=== PATIENT | male | born 1975 | race Caucasian/White ===

== ENCOUNTER 2020-03-22 14:52 | Outpatient (REF) | payer OTHER, SELFPAY | END 2020-03-22 14:53 | disposition home or self-care (01) | LOC: HO.LAB 14:52 | PROVIDERS: Visit Provider Internal Medicine | DX: Z20.828 Contact with and (suspected) exposure to other viral communicable diseases (principal) | CPT/HCPCS: C9803; U0003 ==

== ENCOUNTER 2020-09-26 12:54 | Outpatient (REF) | payer OTHER, SELFPAY ==
[2020-09-26 13:30] LABS: MANUAL DIFF FLAG NO
[2020-09-26 13:37] LABS: Basophils Percent Auto 0.4 % (0-2); Eosinophils Absolute Auto 0.2 X10*3/uL (0.0-0.4); Eosinophils Percent Auto 2.1 % (0-4); Hematocrit 44.2 % (42-52); Hemoglobin 14.1 g/dl (14.0-18.0); Imm Gran Abs Auto 0.04 X10*3/uL (0.00-0.03); Imm Gran Pct Auto 0.4 % (0.0-0.4); Lymphocytes Absolute Auto 3.1 X10*3/uL (1.2-4.9); Lymphocytes Percent Auto 30.2 % (20-40); Mean Corpuscular HGB Conc 31.9 g/dl (31.0-36.0); Mean Corpuscular Hemoglobin 26.5 pg (27.0-33.0); Mean Corpuscular Volume 82.9 fL (80-98); Mean Platelet Volume 10.1 fL (9.4-12.4); Monocytes Absolute Auto 0.9 X10*3/uL (0.1-1.2); Monocytes Percent Auto 8.5 % (2-11); Neutrophils Absolute Auto 5.9 X10*3/uL (2.0-8.3); Neutrophils Percent Auto 58.4 % (45-73); Platelet Count 238 X10*3/uL (160-400); Red Blood Count 5.33 X10*6/uL (4.60-5.80); Red Cell Distribution Width 14.9 % (11.0-16.0); White Blood Count 10.2 X10*3/uL (4.8-10.8)
[2020-09-26 13:59] LABS: Alanine Aminotransferase 61 U/L (0-40); Albumin Level 4.3 g/dL (3.5-5.0); Alkaline Phosphatase 71 U/L (39-117); Anion Gap 12 (12-20); Aspartate Amino Transferase 26 U/L (5-37); Bilirubin Total 0.7 mg/dL (0.0-1.0); Blood Urea Nitrogen 10 mg/dL (9-16); C Reactive Protein 0.32 mg/dL (< or = 0.50); Calcium 9.5 mg/dL (8.4-10.2); Carbon Dioxide 29 mmol/L (22-29); Chloride 103 mmol/L (96-108); Cholesterol 161 mg/dL; Estimated Glomerular Filt Rate > 60; Glucose Random 98 mg/dL (60-115); HDL Cholesterol 30 mg/dL; LDL Cholesterol Calculated 69 mg/dl; Potassium 4.8 mmol/L (3.3-5.1); Sodium 139 mmol/L (135-145); Total Protein 6.7 g/dL (6.5-8.0); Triglycerides 312 mg/dL
== END 2020-09-26 12:55 | disposition home or self-care (01) ==
LOC: HO.LAB 12:54
PROVIDERS: PCP Internal Medicine; Visit Provider Internal Medicine
DX: Z00.00 Encounter for general adult medical examination without abnormal findings (principal); Z86.16 Personal history of COVID-19
CPT/HCPCS: 36415; 80053; 80061; 85025; 86140

== ENCOUNTER 2020-12-20 15:12 | Outpatient (REF) | payer OTHER, SELFPAY ==
[2020-12-20 16:11] LABS: Influenza A PCR NEGATIVE (Negative); Influenza B PCR NEGATIVE (Negative); Resp Syncy Virus RNA Qual PCR NEGATIVE (Negative); SARS COV2 PCR INHOUSE NEGATIVE (Negative)
== END 2020-12-20 15:13 | disposition home or self-care (01) ==
LOC: HO.LNP 15:12
PROVIDERS: Visit Provider Internal Medicine
DX: R06.02 Shortness of breath (principal); Z20.822 Contact with and (suspected) exposure to COVID-19; Z86.16 Personal history of COVID-19
CPT/HCPCS: 0241U

== ENCOUNTER 2021-07-18 10:13 | Outpatient (REF) | payer OTHER, SELFPAY ==
[2021-07-18 13:17] LABS: MANUAL DIFF FLAG NO
[2021-07-18 13:22] LABS: Basophils Absolute Auto 0.1 X10*3/uL (0.0-0.2); Basophils Percent Auto 0.6 % (0-2); Eosinophils Absolute Auto 0.2 X10*3/uL (0.0-0.4); Eosinophils Percent Auto 2.3 % (0-4); Hematocrit 45.8 % (42.0-52.0); Hemoglobin 14.5 g/dl (14.0-18.0); Imm Gran Abs Auto 0.02 X10*3/uL (0.00-0.03); Imm Gran Pct Auto 0.2 % (0.0-0.4); Lymphocytes Percent Auto 33.6 % (20-40); Mean Corpuscular HGB Conc 31.7 g/dl (31.0-36.0); Mean Corpuscular Hemoglobin 26.7 pg (27.0-33.0); Mean Corpuscular Volume 84.2 fL (80.0-98.0); Mean Platelet Volume 11.4 fL (9.4-12.4); Monocytes Absolute Auto 0.6 X10*3/uL (0.1-1.2); Neutrophils Absolute Auto 5.1 x10*3/uL (2.0-8.3); Neutrophils Percent Auto 56.3 % (45-73); Platelet Count 222 X10*3/uL (160-400); Red Blood Count 5.44 X10*6/uL (4.60-5.80); Red Cell Distribution Width 14.9 % (11.0-16.0); White Blood Count 9.1 X10*3/uL (4.8-10.8)
[2021-07-18 13:49] LABS: Alanine Aminotransferase 31 U/L (0-40); Albumin Level 4.2 g/dL (3.5-5.0); Alkaline Phosphatase 65 U/L (39-117); Anion Gap 15 (12-20); Aspartate Amino Transferase 15 U/L (5-37); Bilirubin Total 0.4 mg/dL (0.0-1.0); Blood Urea Nitrogen 10 mg/dL (9-16); Calcium 9.1 mg/dL (8.4-10.2); Carbon Dioxide 23 mmol/L (22-29); Chloride 106 mmol/L (96-108); Estimated Glomerular Filt Rate > 60; Glucose Random 92 mg/dL (60-115); Lipase 30 U/L (8-78); Potassium 4.7 mmol/L (3.3-5.1); Sodium 139 mmol/L (135-145)
== END 2021-07-18 10:14 | disposition home or self-care (01) ==
LOC: HO.10HDL 10:13
PROVIDERS: Visit Provider Internal Medicine
DX: R10.9 Unspecified abdominal pain (principal)
CPT/HCPCS: 36415; 80053; 83690; 85025

== ENCOUNTER 2021-07-20 13:37 | Outpatient (REF) | payer OTHER, SELFPAY ==
--- NOTE | ~2021-07-20 | US_ITS ---
EXAMINATION: US ABDOMEN COMPLETE CLINICAL INFORMATION: Abdominal pain. COMPARISON: None TECHNIQUE: Real-time imaging of the abdominal viscera. FINDINGS: PANCREAS: Normal. ABDOMINAL AORTA: The proximal, mid, and distal segments are normal in caliber. INFERIOR VENA CAVA: IVC is not well seen. LIVER: The liver is normal in size. The liver contour is normal. There is increased liver echogenicity. No focal hepatic lesion. There is no intrahepatic biliary duct dilatation seen. GALLBLADDER: Normal. The gallbladder is physiologically distended without evidence of stones, sludge, polyps, wall thickening or pericholecystic fluid. COMMON BILE DUCT: Normal in caliber measuring 0.23 cm in diameter. RIGHT KIDNEY: Normal. No hydronephrosis. No renal calculi or focal parenchymal lesions. The kidney measures 10.5 cm in maximum dimension. LEFT KIDNEY: Normal. No hydronephrosis. No renal calculi or focal parenchymal lesions. The kidney measures 12.2 cm in maximum dimension. SPLEEN: Normal. The spleen measures 10.2 cm in maximum dimension. FREE FLUID: None. US/US abdomen complete IMPRESSION: Mild hepatic steatosis without focal lesion. The rest of the abdominal ultrasound is unremarkable.
== END 2021-07-20 13:38 | disposition home or self-care (01) ==
LOC: HO.US 13:37
PROVIDERS: PCP Internal Medicine; Visit Provider Internal Medicine
DX: R10.84 Generalized abdominal pain (principal); K21.9 Gastro-esophageal reflux disease without esophagitis
CPT/HCPCS: 76700

== ENCOUNTER 2022-01-01 11:23 | Outpatient (REF) | payer OTHER, SELFPAY ==
[2022-01-01 13:37] LABS: MANUAL DIFF FLAG NO
[2022-01-01 13:41] LABS: Basophils Absolute Auto 0.1 X10*3/uL (0.0-0.2); Basophils Percent Auto 0.4 % (0-2); Eosinophils Absolute Auto 0.2 X10*3/uL (0.0-0.4); Eosinophils Percent Auto 1.8 % (0-4); Hematocrit 45.2 % (42.0-52.0); Hemoglobin 14.1 g/dl (14.0-18.0); Imm Gran Abs Auto 0.02 X10*3/uL (0.00-0.03); Imm Gran Pct Auto 0.2 % (0.0-0.4); Lymphocytes Absolute Auto 2.9 X10*3/uL (1.2-4.9); Lymphocytes Percent Auto 25.2 % (20-40); Mean Corpuscular HGB Conc 31.2 g/dl (31.0-36.0); Mean Corpuscular Volume 83.4 fL (80.0-98.0); Monocytes Absolute Auto 0.8 X10*3/uL (0.1-1.2); Neutrophils Absolute Auto 7.5 x10*3/uL (2.0-8.3); Neutrophils Percent Auto 65.4 % (45-73); Platelet Count 197 X10*3/uL (160-400); Red Blood Count 5.42 X10*6/uL (4.60-5.80); Red Cell Distribution Width 14.6 % (11.0-16.0); White Blood Count 11.4 X10*3/uL (4.8-10.8)
[2022-01-01 13:50] LABS: Appearance Urine Clear; Color Urine Yellow; Glucose Urine UA Negative (Negative); Leukocyte Esterase Urine Negative (Negative); Nitrite Urine Negative (Negative); PH 6.5 (5.0-9.0); Specific Gravity - Urine 1.015 (1.005-1.025); Urine Blood Trace (Negative); Urine Ketones Negative (Negative); Urine Protein Negative (Neg-Trace)
[2022-01-01 13:51] LABS: Alanine Aminotransferase 33 U/L (0-40); Albumin Level 4.4 g/dL (3.5-5.0); Alkaline Phosphatase 77 U/L (39-117); Anion Gap 13 (12-20); Aspartate Amino Transferase 14 U/L (5-37); Bilirubin Total 0.2 mg/dL (0.0-1.0); Blood Urea Nitrogen 9 mg/dL (9-16); Calcium 9.1 mg/dL (8.4-10.2); Carbon Dioxide 26 mmol/L (22-29); Chloride 104 mmol/L (96-108); Estimated Glomerular Filt Rate > 60; Glucose Fasting 100 mg/dL (60-99); Potassium 4.3 mmol/L (3.3-5.1); Sodium 139 mmol/L (135-145)
[2022-01-01 13:53] LABS: Bacteria Urine None Seen (None Seen); Hyaline Casts Urine 0-2 /LPF (0-2); Squamous Epithelial Cell Urine 0-2 /HPF (0-2); WBC Urine 0-5 /HPF (0-5)
[2022-01-01 16:21] LABS: CT PCR NOT DETECTED (Not Detect.); NG PCR NOT DETECTED (Not Detect.)
== END 2022-01-01 11:24 | disposition home or self-care (01) ==
LOC: HO.10HDL 11:23
PROVIDERS: Visit Provider Internal Medicine
DX: K21.9 Gastro-esophageal reflux disease without esophagitis (principal); J30.1 Allergic rhinitis due to pollen; N50.89 Other specified disorders of the male genital organs; Z11.3 Encounter for screening for infections with a predominantly sexual mode of transmission
CPT/HCPCS: 80053; 81001; 85025; 87086; 87491; 87591

== ENCOUNTER 2022-03-28 15:07 | Outpatient (REF) | payer OTHER, SELFPAY ==
--- NOTE | ~2022-03-28 | US_ITS ---
EXAMINATION: US SCROTUM CLINICAL INFORMATION: Inflammatory disorder of scrotum. COMPARISON: None TECHNIQUE: A sonogram of the scrotum was performed assessing mejia-scale appearance and color Doppler flow. Spectral Doppler analysis of the arterial and venous flow were performed in the testes bilaterally. FINDINGS: RIGHT: Right testicle measures 4.1 x 2.4 x 3.5 cm, volume 18.1 mL. No focal testicular parenchymal lesions are visualized. Spectral Doppler analysis of the arterial and venous flow is normal in the right testis. Right epididymal head is normal in size. No right varicocele is seen. A small right hydrocele is seen. Right epididymal Doppler flow is normal. LEFT: Left testicle measures 4.4 x 2.3 x 3.4 cm, volume 18.1 mL. No focal testicular parenchymal lesions are visualized. Spectral Doppler analysis of the arterial and venous flow is normal in the left testis. Left epididymal head is normal in size. There is anechoic epididymal head cyst. No left hydrocele or varicocele is seen. Left epididymal Doppler flow is normal. US/US scrotum IMPRESSION: Small left epididymal head cysts. Small right hydrocele. Normal ultrasound and flow to both testes. There is normal flow to bilateral epididymides.
== END 2022-03-28 15:08 | disposition home or self-care (01) ==
LOC: HO.US 15:07
PROVIDERS: Visit Provider Internal Medicine
DX: N49.2 Inflammatory disorders of scrotum (principal)
CPT/HCPCS: 76870

== ENCOUNTER 2023-08-08 10:32 | Outpatient (REF) | payer OTHER, SELFPAY ==
[2023-08-08 10:52] LABS: MANUAL DIFF FLAG NO
[2023-08-08 11:03] LABS: Basophils Absolute Auto 0.1 X10*3/uL (0.0-0.2); Basophils Percent Auto 0.7 % (0-2); Eosinophils Absolute Auto 0.2 X10*3/uL (0.0-0.4); Eosinophils Percent Auto 2.9 % (0-4); Hematocrit 44.3 % (42.0-52.0); Hemoglobin 14.2 g/dl (14.0-18.0); Imm Gran Abs Auto 0.02 X10*3/uL (0.00-0.03); Imm Gran Pct Auto 0.2 % (0.0-0.4); Lymphocytes Absolute Auto 3.2 X10*3/uL (1.2-4.9); Lymphocytes Percent Auto 37.8 % (20-40); Mean Corpuscular HGB Conc 32.1 g/dl (31.0-36.0); Mean Corpuscular Hemoglobin 26.8 pg (27.0-33.0); Mean Corpuscular Volume 83.6 fL (80.0-98.0); Mean Platelet Volume 10.7 fL (9.4-12.4); Monocytes Absolute Auto 0.6 X10*3/uL (0.1-1.2); Neutrophils Absolute Auto 4.3 x10*3/uL (2.0-8.3); Neutrophils Percent Auto 51.4 % (45-73); Platelet Count 234 X10*3/uL (160-400); Red Cell Distribution Width 14.9 % (11.0-16.0); White Blood Count 8.4 X10*3/uL (4.8-10.8)
[2023-08-08 12:31] LABS: Alanine Aminotransferase 25 U/L (0-40); Albumin Level 4.3 g/dL (3.5-5.0); Alkaline Phosphatase 57 U/L (39-117); Anion Gap 12 (12-20); Aspartate Amino Transferase 12 U/L (5-37); Bilirubin Total 0.3 mg/dL (0.0-1.0); Blood Urea Nitrogen 10 mg/dL (9-16); C Reactive Protein < 0.10 mg/dL (< or = 0.50); Carbon Dioxide 27 mmol/L (22-29); Chloride 107 mmol/L (96-108); Cholesterol 152 mg/dL (<200); Estimated Glomerular Filt Rate > 60; Glucose Random 89 mg/dL (60-115); Potassium 4.1 mmol/L (3.3-5.1); Sodium 142 mmol/L (135-145); Total Protein 6.9 g/dL (6.5-8.0)
== END 2023-08-08 10:33 | disposition home or self-care (01) ==
LOC: HO.10HDL 10:32
PROVIDERS: Visit Provider Internal Medicine
DX: K21.9 Gastro-esophageal reflux disease without esophagitis (principal); J30.1 Allergic rhinitis due to pollen; R63.4 Abnormal weight loss
CPT/HCPCS: 36415; 80053; 82465; 85025; 86140

== ENCOUNTER 2023-11-13 13:25 | Outpatient (REF) | payer OTHER, SELFPAY | END 2023-11-13 13:26 | disposition home or self-care (01) | LOC: HO.LNP 13:25 | PROVIDERS: Visit Provider Internal Medicine | DX: L02.511 Cutaneous abscess of right hand (principal) | CPT/HCPCS: 87070; 87205 ==

== ENCOUNTER 2025-04-11 12:56 | Outpatient (AMB) | payer OTHER, SELFPAY ==
--- NOTE | 2025-04-11 13:02 | MHC.PC.OV ---
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 Accompanied by: Self / Same As Patient Allergies No Known Allergies Allergy (Verified 04/11/25 13:12) Medication List - Last Reconciled 04/11/25 by CORBY Jang fluticasone propionate 50 mcg/actuation 1 spray intranasal DAILY omeprazole 20 mg PO DAILY Tobacco use date assessed: 04/11/25 Dental Screening Dental Screen Date: 04/11/25 Did you have a dental visit in the last 12 months?: Yes Did you have a dental problem in the last 6 months where you did not have access to dental care?: No Was dental information given to patient?: 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 Claros at [address] [place] [address], has retired Last visit:over a year ago Last PE: same Specialist: no OBGYN:n/a Past medical history:GERD, allergic rhinitis, tinnitus in both ears, dry eyes (lumify), Medications: Flonase inhaler, omeprazole 20 mg Family HX: n/a Problem: The patient is a 49 year old male presenting to [facility] care with a new primary care physician after his previous doctor, Dr. Claros, retired. His last physical exam was over a year ago. He does not see any specialists. The patient reports a history of acid reflux, which can cause increased salivation and occasional chest pain. He has a prescription for omeprazole (Prilosec), which he was advised to take as needed before eating heavy or spicy meals, rather than daily, due to concerns about potential liver damage with long-term use. He typically takes it about a half hour before eating. He has had an endoscopy in the past. The patient has environmental allergies for which he uses a nasal spray (Flonase) daily, which he finds effective. He also experiences constant bilateral tinnitus, which worsens with loud noise exposure. An ENT evaluation last year suggested ear damage was the cause. The patient reports his eyes often get very red and dry, particularly upon waking in the morning. He uses artificial tears as needed and has yearly eye exams; his current prescription glasses are new. He has a new prescription for reading and distance that he has not picked up as yet. He previously worked outside and believes sun and weather exposure may have caused damage to his eyes. A few months ago, he experienced an irregular heartbeat, but this has since stopped and was not associated with dizziness. He also has calluses on his right foot and previously saw a personal lines sales rep monthly for shaving, but his provider . He has no family history of any medical conditions. He has never had a colonoscopy or Cologuard test. Health Maintenance The patient is establishing care and is due for a physical. Fasting lab work will be ordered to check cholesterol, blood sugar, and thyroid levels. A Cologuard kit will be ordered for colon cancer screening, as guidelines now recommend starting at age 45. Follow-up is scheduled in seven weeks for a complete physical and to review lab results. 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 Results HPI Comments History of Present Illness Details The patient is a 49 year old male presenting to establish care with a new primary care physician after his previous doctor, Dr. Claros, retired. His last physical exam was over a year ago. He does not see any specialists. The patient reports a history of acid reflux, which can cause increased salivation and occasional chest pain. He has a prescription for omeprazole (Prilosec), which he was advised to take as needed before eating heavy or spicy meals, rather than daily, due to concerns about potential liver damage with long-term use. He typically takes it about a half hour before eating. He has had an endoscopy in the past. The patient has environmental allergies for which he uses a nasal spray (Flonase) daily, which he finds effective. He also experiences constant bilateral tinnitus, which worsens with loud noise exposure. An ENT evaluation last year suggested ear damage was the cause. The patient reports his eyes often get very red and dry, particularly upon waking in the morning. He uses artificial tears as needed and has yearly eye exams; his current prescription glasses are new. He has a new prescription for reading and distance that he has not picked up as yet. He previously worked outside and believes sun and weather exposure may have caused damage to his eyes. A few months ago, he experienced an irregular heartbeat, but this has since stopped and was not associated with dizziness. He also has calluses on his right foot and previously saw a personal lines sales rep monthly for shaving, but his provider . He has no family history of any medical conditions. He has never had a colonoscopy or Cologuard test. Health Maintenance The patient is establishing care and is due for a physical. Fasting lab work will be ordered to check cholesterol, blood sugar, and thyroid levels. A Cologuard kit will be ordered for colon cancer screening, as guidelines now recommend starting at age 45. Follow-up is scheduled in seven weeks for a complete physical and to review lab results. 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 Results [facility] Medical History (Updated 04/13/25 @ 08:50 by CORBY Jang) Allergic rhinitis Dry eyes GERD (gastroesophageal reflux disease) Social History Housing: House Patient Tobacco Use Status: Never used Tobacco e-Cigarette/Vaping Use: Never Used service: No Current occupational status: employed Cognitive needs: No Hearing needs: No Vision needs: Yes (Rx glasses) Questionnaire PHQ-9 Over the last 2 weeks, how often have you been bothered by any of the following problems? 1. Little interest or pleasure in doing things: not at all 2. Feeling down, depressed, or hopeless: not at all 3. Trouble falling or staying asleep, or sleeping too much: not at all 4. Feeling tired or having little energy: not at all 5. Poor appetite or overeating: not at all 6. Feeling bad about yourself - or that you are a failure or have let yourself or your family down: not at all 7. Trouble concentrating on things, such as reading the newspaper or watching television: not at all 8. Moving or speaking so slowly that other people could have noticed. Or the opposite - being so fidgety or restless that you have been moving around a lot more than usual: not at all 9. Thoughts that you would be better off or of hurting yourself in some way: not at all Total score: 0 Depression Screening Interpretation: Negative Depression Screening Done: Yes 71207 - PHQ-9 Billing: Yes Source: Developed by Drs. Javon Saldivar, Johanna Driscoll, Naren Nolan and colleagues, with an educational praveen from [employer]. Thrive Questionnaire I am a: Patient What is your living situation today?: I have a steady place to live Within the past 12 months, did the food you bought not last and you didn't have the money to get more?: Never true Within the past 12 months, did you worry whether your food would run out before you got money to buy more?: Sometimes True Do you have trouble paying for medicines?: Yes Do you have trouble getting transportation to medical appointments?: No Do you have trouble paying your heating and electricity bill?: Yes Do you have trouble taking care of your child, family member or friend?: No Do you have trouble with day-to-day activities such as bathing, preparing meals, shopping, managing finances, etc.?: No Are you currently unemployed and looking for a job?: Yes Are you interested in more education?: No Please select the resources that you would like help with: None Currently or been in a relationship where the following occur: No concerns reported THRIVE Score: 2 AUDIT C Alcohol Use Questionnaire (AUDIT-C) 1. How often do you have a drink containing alcohol?: Never Total Score: 0 KEYANA-7 AMB Questionnaire KEYANA-7 Feeling nervous, anxious, or on edge: 0 = Not at all Not being able to stop or control worryin = Not at all Worrying too much about different things: 0 = Not at all Trouble relaxin = Not at all Being so restless that it is hard to sit still: 0 = Not at all Becoming easily annoyed or irritable: 0 = Not at all Feeling afraid as if something awful might happen: 0 = Not at all Total KEYANA-7 score (0-4 normal; 5-9 mild; 10-14 moderate; 15-21 severe): 0 Source: Developed by Drs. Javon Saldivar, Naren Arnett and colleagues, with an educational praveen from [employer]. KEYANA-7 Assessment Billing KEYANA-7 Assessment Tool: KEYANA-7 Assessment 04209 Review of Systems Narrative Review of Systems - Constitutional: Denies fever. - Eyes: Reports eye redness and dryness, especially in the morning, requiring occasional artificial tears. Denies vision changes corrected by new glasses. - ENT/Mouth: Reports allergies, constant bilateral tinnitus exacerbated by noise, and excessive salivation. - Cardiovascular: Reports occasional chest pain, which he relates to heartburn. Reports a resolved history of irregular heart rate from a few months ago. Denies heart palpitations and dizziness. - Respiratory: Denies shortness of breath. - Gastrointestinal: Reports heartburn/acid reflux. Denies constipation or diarrhea. Denies blood in stool or hemorrhoids. - Neurological: Denies headaches. - Integumentary: Reports calluses on his right foot. Const Denies headache(s) Eyes Reports dry eyes, Denies loss of vision and Reports other (eye redness) ENT Denies vertigo, Denies dizziness, Denies headache(s), Reports tinnitus (occasional in bilateral ears), Denies sore throat and Reports other (increased salivation) Card Denies chest pain, Denies leg edema and Denies lightheadedness Resp Denies cough, Denies hemoptysis and Denies wheezing GI Denies abdominal pain, Denies melena, Denies constipation, Reports heartburn (on and off), Denies diarrhea and Denies vomiting Denies dysuria, Denies urinary frequency and Denies urinary urgency Musc Denies arthralgias, Denies joint swelling, Denies numbness and Denies tingling Skin/Breast Reports other (callus on the bottom of right foot) Neuro Denies Abnormal speech present, Denies behavioral changes, Denies vertigo, Denies dizziness, Denies headache(s), Denies loss of vision, Denies memory loss, Denies numbness and Denies tingling Psych Denies anxiety, Denies behavioral changes, Denies depression, Denies memory loss and Denies panic attacks Ez/Lymph Denies easy bleeding and Denies easy bruising Aller/Immun Denies wheezing Physical exam (Primary Care) Vital Signs: Last Vital Signs Temp 97.8 F 04/11/25 13:04 Pulse 102 H 04/11/25 13:04 Resp 14 04/11/25 13:04 BP 124/72 04/11/25 13:04 Pulse Ox 98 04/11/25 13:04 Oxygen Delivery Method Room Air 04/11/25 13:04 BMI result Body Mass Index 28.4 Tobacco/Smoking Status: Tobacco use Status Tobacco use date assessed 04/11/25 04/11/25 13:10 Patient Tobacco Use Status Never used Tobacco 04/11/25 13:10 e-Cigarette/Vaping Use Never Used 04/11/25 13:10 PHQ-9: PHQ-9 Score PHQ-9: Total score 0 04/11/25 14:54 Depression Screening Interpretation: Negative Currently or been in a relationship where the following occur: No concerns reported Narrative Physical Exam General: Cooperative, healthy appearing, comfortable, no acute distress and well developed Orientation: Patient oriented x3 Limitations: No limitations Head: Normal to inspection Ears: Hearing grossly normal bilaterally, but patient reports constant tinnitus that worsens with noise exposure Nose: Normal external nose present Face and sinus: Normal facial exam Eyes: Appearance normal, both eyes and all related structures, but patient reports redness and dryness, uses artificial tears regularly Neck: Normal visual inspection and Yes full ROM Respiratory: Normal respiratory effort and able to speak in complete sentences. Clear to auscultation bilaterally Cardiovascular: Regular rate and rhythm. Normal S1 and S2, but heart rate noted to be 102 GI: Normal to inspection. Soft to palpation and nontender Skin: No rashes or lesions noted Neuro: Patient oriented x3 Extremities: Normal to inspection, but patient reports calluses on the right foot, requires personal lines sales rep referral for management Const General: healthy appearing, no acute distress, alert and awake Nutritional Appearance: well nourished Orientation/consciousness: oriented to person, oriented to place and oriented to time [facility] Head: Yes normal to inspection Ears: TM's normal bilaterally General nose exam: Abnormal mucous membranes and turbinates present erythematous bilateral Eyes Conjunctivae: conjunctivae normal Sclerae: sclerae normal Pupils: Equal, round and reactive pupils present Neck Neck: Yes no lymphadenopathy and Yes no JVD Thyroid: Thyroid normal Carotids: no bruits Resp Effort & Inspection: normal respiratory effort and not tachypneic Auscultation: no crackles, no rales, no rhonchi and no wheezes Cardio Rate: tachycardic Rhythm: regular rhythm Heart sounds: S1 normal heart sound present, S2 normal heart sound present, no murmurs and normal S1 and S2 GI Palpation (GI): Soft to palpation, nontender, no hepatomegaly and no splenomegaly Auscultation: normal bowel sounds General: Yes no CVA tenderness Back/Spine/Pelvis Back: no CVA tenderness Skin General skin exam: dry skin Lesions: lesion noted (right plantar callus) Neuro General: oriented to person, oriented to place and oriented to time Cranial nerves: Yes Equal, round and reactive pupils present Speech: No Abnormal speech present Gait exam (Neuro): Normal gait present Motor exam (neuro): no tremor noted Extrem Right upper extremity: full ROM Left upper extremity: full ROM Right lower extremity: full ROM; no edema Left lower extremity: full ROM; no edema Psych Mental Status: mental status grossly normal Speech and movement: Normal speech and movement present Affect: normal affect Attitude: cooperative Thought process: Normal thought process present Coding Level of Care Code New Pt Level 4 (52674) Diagnoses Allergic rhinitis, unspecified seasonality, unspecified trigger J30.9 Allergic rhinitis seasonality: unspecified Allergic rhinitis trigger: unspecified Dry eyes H04.123 Gastroesophageal reflux disease without esophagitis K21.9 Esophagitis presence: without esophagitis Callus L84 Tinnitus of both ears H93.13 Additional Codes KEYANA-7 Assessment Billing - KEYANA-7 Assessment Tool: KEYANA-7 Assessment 89191 ([id number]) PHQ-9 - 89752 - PHQ-9 Billing: Yes ([id number]) Time Spent (min) 38 Assessment & Plan Assessment & Plan (1) Allergic rhinitis: Code(s): J30.9 - Allergic rhinitis, unspecified Category: Medical Qualifiers: Allergic rhinitis seasonality: unspecified Allergic rhinitis trigger: unspecified Qualified Code(s): J30.9 - Allergic rhinitis, unspecified (2) Dry eyes: Code(s): H04.123 - Dry eye syndrome of bilateral lacrimal glands Category: Medical (3) GERD (gastroesophageal reflux disease): Code(s): K21.9 - Gastro-esophageal reflux disease without esophagitis Category: Medical Qualifiers: Esophagitis presence: without esophagitis Qualified Code(s): K21.9 - Gastro-esophageal reflux disease without esophagitis (4) Callus: Code(s): L84 - Corns and callosities Category: Medical (5) Tinnitus of both ears: Code(s): H93.13 - Tinnitus, bilateral Category: Medical Plan Plan Patient was informed and verbally consented to the use of an ambient scribe for clinic note documentation during this visit. 1. Gastroesophageal Reflux Disease The patient's excessive salivation and occasional chest pain are likely related to his GERD. A prescription for omeprazole (Prilosec) will be sent to the pharmacy. Verified that the patient correctly takes the medication as needed, approximately 30 minutes before a meal, rather than daily. 2. Allergic Rhinitis The patient uses a nasal spray for his allergies, which he finds effective. A prescription for Flonase will be sent to the pharmacy. 3. Dry Eye Syndrome & Tinnitus The patient's complaint of red, dry eyes was discussed. The possibility of Graves' disease was considered based on the patient's research, and it was explained that this could be evaluated via thyroid lab tests. The redness may also be due to eye strain from using incorrect lenses while reading from his phone. Fasting labs will be ordered, which include a thyroid panel. The patient reports constant bilateral tinnitus and had a previous ENT evaluation. 4. Callus The patient has calluses on his right foot and requires a new personal lines sales rep, as his previous one is no longer practicing. A referral will be placed for a personal lines sales rep for callus management. Discussion Notes I have discussed the plan with the patient. I have sent prescriptions for Flonase and Prilosec to his pharmacy. I educated the patient on the proper use of Prilosec, confirming he understands to take it 30 minutes before meals. We discussed his red eyes and the possibility of Graves' disease, which he had researched. I explained we would check his thyroid levels with blood work. I also advised him that eye strain from using the wrong glasses for reading on his phone could be contributing to the redness. I recommended colon cancer screening with a Cologuard test, explaining the screening age has been lowered to 45 due to an increase in early-onset cases. I am ordering fasting labs and will place a referral to podiatry for his calluses. We will follow up in seven weeks for a full physical to review the results. Patient Instructions - I have sent prescriptions for Flonase and Prilosec to your pharmacy, [facility] [address]. - Take omeprazole (Prilosec) as needed about a half hour before you eat a large or spicy meal. It does not work well if you take it with food or after symptoms start. - You will need to get fasting blood work done before your next appointment. This means no food or drink, except for water, before the test. You can go to the lab at the [facility]; it is first come, first served. - I have ordered a Cologuard test for you. This is a colon cancer screening kit that will be sent to your home. Follow the instructions to collect a stool sample and mail it back. - I am putting in a referral for you to see a foot doctor (personal lines sales rep) to help with the calluses on your foot. - Please schedule a follow-up appointment in seven weeks for a complete physical exam and to go over your lab results. Orders: Orders Comprehensive Rico. Panel Fast 04/11/25 H04.123 - Dry eye syndrome of bilateral lacrimal glands, K21.9 - Gastro-esophageal reflux disease without esophagitis, Z00.00 - Encounter for general adult medical examination without abnormal findings UA CC w/rflx Micro + Cult 04/11/25 H04.123 - Dry eye syndrome of bilateral lacrimal glands, K21.9 - Gastro-esophageal reflux disease without esophagitis, Z00.00 - Encounter for general adult medical examination without abnormal findings Vitamin D 25-OH Total 04/11/25 H04.123 - Dry eye syndrome of bilateral lacrimal glands, K21.9 - Gastro-esophageal reflux disease without esophagitis, Z00.00 - Encounter for general adult medical examination without abnormal findings Free T4 (Free Thyroxine) 04/11/25 H04.123 - Dry eye syndrome of bilateral lacrimal glands, K21.9 - Gastro-esophageal reflux disease without esophagitis, Z00.00 - Encounter for general adult medical examination without abnormal findings Complete Blood Count Auto Diff 04/11/25 H04.123 - Dry eye syndrome of bilateral lacrimal glands, K21.9 - Gastro-esophageal reflux disease without esophagitis, Z00.00 - Encounter for general adult medical examination without abnormal findings Lipid Panel 04/11/25 H04.123 - Dry eye syndrome of bilateral lacrimal glands, K21.9 - Gastro-esophageal reflux disease without esophagitis, Z00.00 - Encounter for general adult medical examination without abnormal findings TSH reflex Free T4 04/11/25 H04.123 - Dry eye syndrome of bilateral lacrimal glands, K21.9 - Gastro-esophageal reflux disease without esophagitis, Z00.00 - Encounter for general adult medical examination without abnormal findings PSA,Total (Free>4and<10) 04/11/25 H04.123 - Dry eye syndrome of bilateral lacrimal glands, K21.9 - Gastro-esophageal reflux disease without esophagitis, Z00.00 - Encounter for general adult medical examination without abnormal findings Referrals Ear/Nose/Throat Referral H93.13 - Tinnitus, bilateral Podiatry Referral L84 - Corns and callosities Medications: New omeprazole 20 mg PO DAILY 90 caps 3RF Refilled fluticasone propionate 50 mcg/actuation administer into each nostril 1 spray intranasal DAILY 16 grams 3RF
[2025-04-11 13:04] VITALS: BP 124/72; PULSE 102; RESP 14; TEMP 36.6; O2SAT 98; BMI 28.4
== END 2025-04-11 14:08 | disposition home or self-care (01) ==
LOC: HO.HMCH 12:57
DX: J30.9 Allergic rhinitis, unspecified (principal); H04.123 Dry eye syndrome of bilateral lacrimal glands; K21.9 Gastro-esophageal reflux disease without esophagitis; L84 Corns and callosities; H93.13 Tinnitus, bilateral

== ENCOUNTER → 2025-04-11 12:56 | Outpatient (BNVA) | payer OTHER, SELFPAY | PROVIDERS: PCP Internal Medicine | DX: H04.123 Dry eye syndrome of bilateral lacrimal glands (principal); H93.13 Tinnitus, bilateral; K21.9 Gastro-esophageal reflux disease without esophagitis; J30.9 Allergic rhinitis, unspecified; L84 Corns and callosities | CPT/HCPCS: 96127; 99202 ==